=== PATIENT | female | born 1960 | race Caucasian/White ===

== ENCOUNTER 2019-12-30 21:42 | Emergency (ER) | payer BC, OTHER ==
--- NOTE | 2019-12-30 23:07 | ED Physician Documentation ---
History of Present Illness - Stated complaint Stated Complaint: ANXIETY, FLUTTER IN CHEST - NEW BP MED - Chief complaint Chief Complaint: Cardiac - History obtained from History obtained from: Patient - History of Present Illness Timing: Today Pain level now: 0 Improved by: no ameliorating factors Worsened by: no apparent exacerbating factors - Additonal information Additional information: c/o "waves of anxiety today" (per patient). "maybe side effect of amlodipine" which was started 12/19. mild, occasional palpitations that don't necessarily correlate with anxiety. Mild dyspnea with the episodes. Review of Systems Constitutional: denies: Fever, Chills, Sweats Cardiac: reports: Palpitations. denies: Chest pain / pressure, Pedal edema, Calf pain Respiratory: reports: Dyspnea (mild, episodic). denies: Cough GI: reports: Reviewed and negative Neurologic: denies: Generalized weakness, Focal weakness, Numbness, Headache Psychiatric: reports: Anxiety PD PAST MEDICAL HISTORY - Past Medical History Past Medical History: Yes Cardiovascular: Hypertension, High cholesterol Psych: Depression - Past Surgical History Past Surgical History: No - Present Medications Home Medications: Ambulatory Orders Medication Instructions Recorded Confirmed Amlodipine Besylate 5 mg PO DAILY 12/30/19 12/30/19 Rosuvastatin Calcium [Crestor] 5 mg PO DAILY 12/30/19 12/30/19 Sertraline HCl 50 mg PO DAILY 12/30/19 12/30/19 lisinopriL [Lisinopril] 20 mg PO DAILY 12/30/19 12/30/19 LORazepam [Lorazepam] 0.5 mg PO TID PRN #20 tablet 12/31/19 - Allergies Allergies/Adverse Reactions: Allergies Allergy/AdvReac Type Severity Reaction Status Date / Time No Known Drug Allergies Allergy Verified 12/30/19 21:48 - Social History Does the pt smoke?: No Smoking Status: Never smoker Does the pt drink ETOH?: No Does the pt have substance abuse?: No - Immunizations Immunizations are current?: Yes - POLST Patient has POLST: No PD ED PE NORMAL - Vitals Vital signs reviewed: Yes - General General: Alert and oriented X 3, No acute distress, Well developed/nourished - HEENT HEENT: Moist mucous membranes - Neck Neck: Supple, no meningeal sign - Cardiac Cardiac: RRR, No murmur, No gallop, No rub - Respiratory Respiratory: No respiratory distress, Clear bilaterally - Abdomen Abdomen: Soft, Non tender - Extremities Extremities: No edema Results - Vitals Vitals: Vital Signs - 24 hr 12/30/19 12/30/19 12/30/19 21:48 22:05 22:41 Temperature 36.2 C L Heart Rate 81 80 Respiratory 20 17 Rate Blood Pressure 138/93 H 134/74 H Blood Pressure 140/84 H [Left] O2 Saturation 99 96 12/31/19 12/31/19 00:15 01:15 Temperature 36.5 C Heart Rate 79 77 Respiratory 17 20 Rate Blood Pressure 128/81 H 125/77 Blood Pressure [Left] O2 Saturation 96 99 Oxygen O2 Source Room air - EKG (time done) No standard instances Rate: Rate (enter#) (88) Rhythm: NSR [place]: LAD Intervals: Normal UT QRS: Normal Ischemia: Normal ST segments - Labs Labs: Laboratory Tests 12/30/19 12/30/19 12/30/19 23:40 23:40 23:40 WBC 7.0 RBC 5.03 Hgb 14.9 Hct 43.6 MCV 86.7 MCH 29.6 MCHC 34.2 RDW 12.5 Plt Count 186 MPV 9.9 Neut # (Auto) 3.8 Lymph # (Auto) 2.4 [place] # (Auto) 0.5 Eos # (Auto) 0.2 Baso # (Auto) 0.0 Absolute Nucleated RBC 0.00 Nucleated RBC % 0.0 Sodium 136 Potassium 3.5 Chloride 103 Carbon Dioxide 22 Anion Gap 11.0 BUN 19 Creatinine 0.7 Estimated GFR (MDRD) 86 L Glucose 118 H Calcium 9.8 Magnesium 2.4 TSH 4.87 - Rads (name of study) chest xray Radiology: Prelim report reviewed, See rad report PD MEDICAL DECISION MAKING - ED course Complexity details: reviewed results, re-evaluated patient, considered differential, d/w patient ED course: patient reports feeling better after PO ativan. test results are reassuring and nondiagnostic. Her symptoms are vague (she is not even sure if "anxiety" is an accurate way to describe what she is feeling, but her descriptors do not sound particularly s/o acute coronary event, dysrhythmia, PE). I encouraged her to return if worse and to follow up with her doctor to discuss possible further testing as well as to discuss whether to continue the amlodipine. Departure - Departure Disposition: 01 Home, Self Care Clinical Impression: Anxiety, Chest pain Condition: Good Instructions: ED Chest Pain Atypical Unkn Cause Prescriptions: LORazepam [Lorazepam] 0.5 mg PO TID PRN #20 tablet PRN Reason: Anxiety Discharge Date/Time: 12/31/19 01:15
--- NOTE | 2019-12-30 23:48 | XRAY Report ---
Reason: dyspnea, anxiety Procedure Date: 12/30/2019 Accession Number: [id number] / [id number] Procedure: XR - Chest 2 View X-Ray CPT Code: 29821 Final Report FULL RESULT: EXAM: CHEST RADIOGRAPHY EXAM DATE: 12/30/2019 11:42 PM. CLINICAL HISTORY: Dyspnea. Anxiety. COMPARISON: None. TECHNIQUE: 2 views. FINDINGS: Lungs/Pleura: No focal opacities evident. No pleural effusion. No pneumothorax. Hyperinflated lungs. Mediastinum: Heart and mediastinal contours are unremarkable. Other: No bony abnormality. IMPRESSION: Hyperinflation, otherwise unremarkable 2-view chest radiography. [facility]
[2019-12-31] LABS: BASOPHILS % (AUTO) 0.6 %; EOSINOPHILS # (AUTO) 0.2 10^3/uL (0.0-0.7); EOSINOPHILS % (AUTO) 2.7 %; HGB - HEMOGLOBIN 14.9 g/dL (12.0-16.0); LYMPHOCYTES # (AUTO) 2.4 10^3/uL (1.5-3.5); LYMPHOCYTES % (AUTO) 34.5 %; MEAN CORPUSCULAR HEMOGLOBIN 29.6 pg (27.0-31.0); MEAN CORPUSCULAR HGB CONC 34.2 g/dL (32.0-36.0); MEAN CORPUSCULAR VOLUME 86.7 fL (81.0-99.0); MEAN PLATELET VOLUME 9.9 fL (7.9-10.8); MONOCYTES # (AUTO) 0.5 10^3/uL (0.0-1.0); MONOCYTES % (AUTO) 7.5 %; NEUTROPHILS # (AUTO) 3.8 10^3/uL (1.5-6.6); NEUTROPHILS % (AUTO) 54.3 %; PLT - PLATELET COUNT 186 10^3/uL (130-450); RED BLOOD COUNT 5.03 10^6/uL (4.20-5.40); RED CELL DISTRIBUTION WIDTH 12.5 % (12.0-15.0)
[2019-12-31] MEDS ORDERED: LORazepam 0.5 MG TABLET PO STA (00:02)
[2019-12-31 00:09] LABS: CALCIUM 9.8 mg/dL (8.5-10.3); CREATININE 0.7 mg/dL (0.4-1.0); MAGNESIUM 2.4 mg/dL (1.7-2.8)
[2019-12-31 01:45] VITALS: BP 125/77
== END 2019-12-31 01:15 | disposition home or self-care (01) ==
LOC: ED 21:42
DX: R07.9 Chest pain, unspecified (principal); F41.9 Anxiety disorder, unspecified; I10 Essential (primary) hypertension
CPT/HCPCS: 36415; 71046; 80048; 83735; 84443; 85025; 93005; 99284; A9270

== ENCOUNTER 2021-01-21 16:34 | Outpatient (CLI) | payer OTHER | END 2021-01-21 16:35 | disposition home or self-care (01) | LOC: COV 16:34 | PROVIDERS: ATTEND Family Medicine | DX: Z20.822 Contact with and (suspected) exposure to COVID-19 (principal) ==

== ENCOUNTER 2021-01-28 07:00 | Outpatient (CLI) | payer OTHER | END 2021-01-28 23:59 | disposition home or self-care (01) | LOC: COV 07:00 | PROVIDERS: ATTEND Family Medicine | DX: Z20.822 Contact with and (suspected) exposure to COVID-19 (principal) ==

== ENCOUNTER 2024-05-12 21:40 | Emergency (ER) | payer BC, OTHER ==
--- NOTE | 2024-05-12 22:15 | ED Physician Documentation ---
History of Present Illness - Stated complaint Stated Complaint: L EYE FLASHES - Chief complaint Chief Complaint: General - History obtained from History obtained from: Patient - Additonal information Additional information: 63yF with pmh htn, mild myopia (does not wear corrective lenses), history of floaters in vision, p/w several episodes tonight of flashes of light in left visual field, starting while in shower after an active day outdoors. patient denies AGUILAR, nausea, dizziness or other symptoms. no fnd PD PAST MEDICAL HISTORY - Past Medical History Past Medical History: Yes Cardiovascular: Hypertension, High cholesterol Psych: Depression - Past Surgical History Past Surgical History: No - Present Medications Home Medications: Ambulatory Orders Medication Instructions Recorded Confirmed Amlodipine Besylate 5 mg PO DAILY 12/30/19 12/30/19 Rosuvastatin Calcium [Crestor] 5 mg PO DAILY 12/30/19 12/30/19 Sertraline HCl 50 mg PO DAILY 12/30/19 12/30/19 lisinopriL [Lisinopril] 20 mg PO DAILY 12/30/19 12/30/19 LORazepam [Lorazepam] 0.5 mg PO TID PRN #20 tablet 12/31/19 - Allergies Allergies/Adverse Reactions: Allergies Allergy/AdvReac Type Severity Reaction Status Date / Time No Known Drug Allergies Allergy Verified 05/12/24 21:48 - Social History Does the pt smoke?: No Smoking Status: Never smoker Does the pt drink ETOH?: No Does the pt have substance abuse?: No - Immunizations Immunizations are current?: Yes - POLST Patient has POLST: No PD ED PE NORMAL - Vitals Vital signs reviewed: Yes - General General: Alert and oriented X 3, No acute distress, Well developed/nourished - HEENT HEENT: Atraumatic, PERRL, EOMI, Moist mucous membranes, Pharynx benign, Other (normal visual field testing good peripheral vision bilaterally) - Neck Neck: Supple, no meningeal sign - Extremities Extremities: Other (L 3rd finger in splint. on exam, normal capillary refill, rom, and sensation. 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 Note that she does have some hypertension with bp 163/74, but without aguilar, cp, soa, nausea or any other symptoms of end organ damage. she can f/u pcp regarding bp management. She has no FND, has normal neurological exam, and normal visual field testing. Plan to f/u ophtho outpatient. On a different note - Patient has mild discomfort at dip joint of L third finger c/w possible mild tendon strain. advised to continue with splint, RICE. offered xray but shared decision made to hold off given it likely will not chemical cell changer. Departure - Departure Disposition: 01 Home, Self Care Clinical Impression: Floaters in visual field, Vision changes Condition: Stable Comments: You were seen in the emergency department for flashes of light in your visual field. Your eye exam was normal. Please follow-up with ophthalmology in the morning and return to the emergency department if you have any new or worsening symptoms or other concerns.
[2024-05-12 22:33] VITALS: O2SAT 99
[2024-05-12 22:43] VITALS: BP 154/83
== END 2024-05-12 22:34 | disposition home or self-care (01) ==
LOC: ED 21:40
DX: H53.8 Other visual disturbances (principal); H43.399 Other vitreous opacities, unspecified eye; I10 Essential (primary) hypertension
CPT/HCPCS: 99281; 99283